=== PATIENT | female | born 1945 | race Caucasian/White ===

== ENCOUNTER 2020-10-01 13:00 | Inpatient (IN) | payer MEDICARE ==
[~2020-10-01] VITALS: Ht 162.6 cm; Wt 85.0 kg
[~2020-10-01 13:00] MED LIST: LOSA1TAB42 PO; METF-444 PO; OXYB5TAB15 PO; POTA20LI52 PO; RALO60TA13 PO
[2020-10-01] MEDS ORDERED: MORPHINE 4 MG SYG ONE (13:24)
[2020-10-01] MEDS ORDERED: ONDANSETRON 4MG INJ ONE (13:24)
[2020-10-01 13:33] LABS: BASOPHILS % (AUTO) 0.7 % (0.0-5.0); EOSINOPHILS % (AUTO) 2.7 % (0.0-8.0); HEMATOCRIT 35.9 % (36-48); LYMPHOCYTES % (AUTO) 25.7 % (21.0-51.0); MEAN CORPUSCULAR HEMOGLOBIN 30.2 pg (27.0-33.0); MEAN CORPUSCULAR HGB CONC 32.9 g/dL (32.0-36.0); MEAN CORPUSCULAR VOLUME 91.8 fL (79-99); MONOCYTES % (AUTO) 7.6 % (3.0-13.0); NEUTROPHILS % (AUTO) 62.9 % (40.0-77.0); PLATELET COUNT (AUTO) 226 K/uL (130-400); RED BLOOD CELL COUNT(AUTO) 3.91 MIL/uL (4.00-5.50); RED CELL DISTRIBUTION WIDTH 13.5 % (11.0-15.5); WHITE BLOOD COUNT (AUTO) 7.4 K/uL (4.8-10.8)
[2020-10-01 13:48] LABS: INR 0.94 (0.85-1.15); PROTHROMBIN TIME 10.3 SEC (9.6-11.6)
[2020-10-01 13:49] LABS: PARTIAL THROMBOPLASTIN TIME 22.3 SEC (26.3-35.5)
[2020-10-01] MEDS ORDERED: PROPOFOL 10 MG/ML 20ML VIAL IV ONE (15:11)
[2020-10-01] MEDS ORDERED: ACETAMINOPHEN 325 MG TAB PO PRN (21:30)
[2020-10-02] VITALS (7 sets, daily range): BP systolic 140–162; BP diastolic 61–86
[2020-10-02 05:40] LABS: HEMATOCRIT 36.3 % (36-48); MEAN CORPUSCULAR HEMOGLOBIN 29.9 pg (27.0-33.0); MEAN CORPUSCULAR HGB CONC 32.5 g/dL (32.0-36.0); MEAN CORPUSCULAR VOLUME 92.1 fL (79-99); RED BLOOD CELL COUNT(AUTO) 3.94 MIL/uL (4.00-5.50); RED CELL DISTRIBUTION WIDTH 13.1 % (11.0-15.5); WHITE BLOOD COUNT (AUTO) 7.7 K/uL (4.8-10.8)
[2020-10-02 05:47] LABS: CREATININE 1.3 mg/dL (0.5-1.5); MAGNESIUM 1.8 mg/dL (1.80-2.40); POTASSIUM 3.7 mmol/L (3.5-5.1)
[2020-10-03] VITALS (22 sets, daily range): BP systolic 128–189; BP diastolic 70–118
[2020-10-03] MEDS ORDERED: KETAMINE 50MG/ML SYRINGE 50 MG/ML DISP.SYRIN IV ONE (07:04)
[2020-10-03] MEDS ORDERED: ROPIVACAINE 0.5% 5MG/ML 30ML IJ ONE (07:04)
[2020-10-03] MEDS ORDERED: SUCCINYLCHOLINE CHLORIDE 20 MG/ML 10 ML VIAL ONE (07:06)
[2020-10-03] MEDS ORDERED: ROCURONIUM 10MG/1ML SYR 10 MG/ML ML ONE (07:06)
[2020-10-03] MEDS ORDERED: MIDAZOLAM HCL 1 MG/ML 2ML VIAL ONE (07:06)
[2020-10-03] MEDS ORDERED: PROPOFOL 10 MG/ML 20ML VIAL IV ONE (07:06)
[2020-10-03] MEDS ORDERED: LIDOCAINE PF 100MG/5ML (2%) SYRINGE 5ML ONE (07:06)
[2020-10-03] MEDS ORDERED: CLINDAMYCIN IVPB 600MG/50ML 50 ML IV ONE (07:12)
[2020-10-03] MEDS ORDERED: ONDANSETRON 4MG INJ ONE (07:51)
[2020-10-03] MEDS ORDERED: DEXAMETHASONE SOD PHOSPHATE 10MG/ML 1ML VIAL ONE (07:51)
[2020-10-03] MEDS ORDERED: GLYCOPYRROLATE 1 MG/5 ML SYRINGE ONE (08:10)
[2020-10-03] MEDS ORDERED: NEOSTIGMINE 5MG/5ML SYR IV ONE (08:10)
[2020-10-03] MEDS ORDERED: ESMOLOL HCL 10 MG/ML 10 ML VIAL ONE (08:21)
[2020-10-03] MEDS ORDERED: MEPERIDINE-PF 25 MG/ML SYG ONE ×2 (08:51→08:58)
[2020-10-03] MEDS: ONDANSETRON 4MG INJ IVP PRN ×2 (13:50→13:54)
[2020-10-03] MEDS: MORPHINE 2 MG SYG IVP PRN (23:49)
[2020-10-04 05:37] VITALS: BP 123/76
[2020-10-04 05:38] LABS: HEMATOCRIT 37.8 % (36-48); MEAN CORPUSCULAR HEMOGLOBIN 29.7 pg (27.0-33.0); MEAN CORPUSCULAR HGB CONC 32.3 g/dL (32.0-36.0); RED BLOOD CELL COUNT(AUTO) 4.11 MIL/uL (4.00-5.50); RED CELL DISTRIBUTION WIDTH 12.9 % (11.0-15.5); WHITE BLOOD COUNT (AUTO) 9.9 K/uL (4.8-10.8)
[2020-10-04 05:56] LABS: CREATININE 0.9 mg/dL (0.5-1.5); MAGNESIUM 1.8 mg/dL (1.80-2.40); POTASSIUM 3.7 mmol/L (3.5-5.1)
[2020-10-04 08:17] VITALS: BP 156/77
[2020-10-04] MEDS: LOSARTAN 100 MG TABLET PO SCH ×2 (08:52→09:09)
[2020-10-04] MEDS: HYDROCHLOROTHIAZIDE 25 MG TABLET PO SCH ×2 (08:53→09:08)
[2020-10-04] MEDS: RALOXIFENE HCL 60 MG TABLET PO SCH ×2 (08:53→08:59)
[2020-10-04] MEDS: MORPHINE 2 MG SYG IVP PRN (08:55)
[2020-10-04] MEDS ORDERED: METFORMIN HCL 500 MG TABLET PO SCH (09:00)
[2020-10-04] MEDS ORDERED: POTASSIUM CHLORIDE 10% ELIXIR 20 MEQ/15 ML UDCUP PO SCH (09:00)
[2020-10-04] MEDS ORDERED: LOSA100T58 PO (09:54)
[2020-10-04 11:00] VITALS: BP 138/72
[2020-10-05] MEDS ORDERED: OXYBUTYNIN CHLORIDE 5 MG TABLET PO SCH (09:00)
== END 2020-10-04 15:19 | disposition home or self-care (01) | DRG 512 ==
LOC: EDH 13:00 → OBSVTOIN 19:26 → EDHIP 19:26 → 3DH 22:10
PROVIDERS: ADMIT Internal Medicine Infectious Disease; ATTEND Internal Medicine Infectious Disease
PROC: 0PSH04Z Reposition Right Radius with Internal Fixation Device, Open Approach (ICD-10-PCS; principal; 2020-10-03 07:50)
DX: S52.571A Other intraarticular fracture of lower end of right radius, initial encounter for closed fracture (principal); S52.601A Unspecified fracture of lower end of right ulna, initial encounter for closed fracture; E66.9 Obesity, unspecified; E11.9 Type 2 diabetes mellitus without complications; I10 Essential (primary) hypertension; E78.5 Hyperlipidemia, unspecified; Z20.822 Contact with and (suspected) exposure to COVID-19; M19.90 Unspecified osteoarthritis, unspecified site; Z53.20 Procedure and treatment not carried out because of patient's decision for unspecified reasons; W01.0XXA Fall on same level from slipping, tripping and stumbling without subsequent striking against object, initial encounter; Y93.01 Activity, walking, marching and hiking; Y92.098 Other place in other non-institutional residence as the place of occurrence of the external cause; Y99.8 Other external cause status; Z68.32 Body mass index [BMI] 32.0-32.9, adult; Z90.49 Acquired absence of other specified parts of digestive tract; Z83.3 Family history of diabetes mellitus
CPT/HCPCS: 36415; 71045; 73100; 73110; 80048; 82948; 83735; 85025; 85027; 85610; 85730; 87426; 93005; G0378; J0330; J1100; J2001; J2175; J2250; J2270; J2405; J2704; J2710; J2795; J3490; J7030; U0003

== ENCOUNTER → 2022-07-20 | Outpatient (CLI) | payer MEDICARE ==
[~2022-07-20] MED LIST changes: +LOSA100T58 PO; -LOSA1TAB42 PO; -RALO60TA13 PO
== END | disposition home or self-care (01) ==
LOC: RAH 13:56
PROVIDERS: ATTEND Urology
DX: C67.9 Malignant neoplasm of bladder, unspecified (principal); R31.0 Gross hematuria
CPT/HCPCS: 76770

== ENCOUNTER 2024-11-29 06:25 | Day surgery (SDC) | payer MEDICARE ==
[2024-11-29] VITALS (10 sets, daily range): BP systolic 125–150; BP diastolic 63–80; PULSE 56–70; RESP 14–16; TEMP 97–97.1
[~2024-11-29] VITALS: Ht 152.4 cm; Wt 68.0 kg
[~2024-11-29 06:25] MED LIST changes: +CHLO25TA3 PO; +FISH1CAP27 PO; +FLUT16H NASAL; +LINA5TAB PO; -LOSA100T58 PO; +LOSA100T59 PO; -METF-444 PO; -OXYB5TAB15 PO; +OXYB5TAB20 PO; -POTA20LI52 PO
[2024-11-29] MEDS: 0.9%NACL 1000ML 1,000 ML IV ONE (07:47)
[2024-11-29] MEDS ORDERED: proPOFol 10 MG/ML 20ML VIAL IV ONE ×2 (08:35→08:49)
--- NOTE | 2024-11-29 10:36 | NUR ---
Full and complete discharge instructions given to Patient and Friend both verbally and in writing. Explained GI procedure precautions and follow up. All questions answered. PIV removed with catheter tip intact. Home with Friend W/C to [facility].
== END 2024-11-29 10:25 | disposition home or self-care (01) ==
LOC: ENDO 06:25 → DAH 06:25 → ENDO 10:25
PROVIDERS: ATTEND Internal Medicine Gastroenterology
DX: Z12.11 Encounter for screening for malignant neoplasm of colon (principal); K57.30 Diverticulosis of large intestine without perforation or abscess without bleeding; K21.00 Gastro-esophageal reflux disease with esophagitis, without bleeding; K29.50 Unspecified chronic gastritis without bleeding; K22.2 Esophageal obstruction; K44.9 Diaphragmatic hernia without obstruction or gangrene; R13.10 Dysphagia, unspecified; R15.9 Full incontinence of feces; E78.5 Hyperlipidemia, unspecified; E11.9 Type 2 diabetes mellitus without complications; I10 Essential (primary) hypertension; Z86.0100 Personal history of colon polyps, unspecified; Z79.899 Other long term (current) drug therapy; Z98.890 Other specified postprocedural states; Z90.49 Acquired absence of other specified parts of digestive tract; Z98.891 History of uterine scar from previous surgery; Z98.49 Cataract extraction status, unspecified eye; Z88.0 Allergy status to penicillin
CPT/HCPCS: 82948; 43239; 43248; J7030 ×2; J2704 ×2; A4620; G0105; A4215 ×2; A4223; A4657; A7002; A4222; A4221; A4663; A4606; J3490